=== PATIENT | female | born 1955 | race Hispanic/Latino ===

== ENCOUNTER 2018-11-14 13:37 | Outpatient (CLI) | payer OTHER | END 2018-11-14 13:38 | disposition home or self-care (01) | LOC: C.RADH 13:37 ==

== ENCOUNTER 2018-12-14 00:32 | Emergency (ER) | payer OTHER ==
[2018-12-14 00:33] VITALS: BMI 24.3
[2018-12-14] MEDS ORDERED: Apap-Butalbital-Caffeine 325-50-40mg Tab PO STA (01:56)
[2018-12-14] MEDS ORDERED: Apap-Butalbital-Caffeine 325-50-40mg Tab ONE (02:04)
[2018-12-14 02:26] LABS: BASO % 0.4 % (0.0-2.0); EOS # 0.1 K/uL (0.0-0.7); HEMOGLOBIN 14.1 g/dL (11.0-16.0); LYMPH # 1.9 K/uL (1.0-4.3); LYMPH % 25.2 % (20.0-40.0); MEAN CELL VOLUME 86.3 fL (81.0-99.0); MEAN CORPUSCULAR HEMOGLOBIN 28.3 pg (27.0-31.0); MEAN CORPUSCULAR HGB CONC 32.8 g/dL (33.0-37.0); MEAN PLATELET VOLUME 9.5 fL (7.2-11.7); MONO # 0.6 K/uL (0.0-0.8); MONO % 7.7 % (0.0-10.0); NEUT % 65.7 % (50.0-75.0); RBC 4.99 Mil/uL (3.80-5.20); RED CELL DISTRIBUTION WIDTH 13.5 % (11.5-14.5); WHITE BLOOD COUNT 7.6 K/uL (4.8-10.8)
[2018-12-14 02:32] LABS: ALB/GLOB RATIO 1.4 (1.0-2.1); ALBUMIN 4.2 g/dL (3.5-5.0); ALT/SGPT 16 U/L (9-52); AST/SGOT 17 U/L (14-36); BLOOD UREA NITROGEN 15 mg/dL (7-17); CALCIUM 8.9 mg/dl (8.6-10.4); GFR NON-AFRICAN AMERICAN > 60
[2018-12-14] MEDS ORDERED: Sodium Chloride 0.9% 500 ML IV ONE (03:05)
--- NOTE | 2018-12-14 03:41 | C.PDOC ---
History Of Present Illness 63 year old female is brought to the ED by EMS for evaluation of moderate frontal headache associated with nausea dizziness. Patient describes her dizziness as sensation of room spinning, patient reports while ambulance was in motion patient started vomiting. Patient denies injury, fall, trauma, weakness, numbness, visual changes, thunderclap description, CP, SOB, palpitations. Time Seen by Provider: 12/14/18 01:28 Chief Complaint (Nursing): Headache History Per: Patient, EMS History/Exam Limitations: no limitations Onset/Duration Of Symptoms: Hrs Current Symptoms Are (Timing): Still Present Severity: Moderate Quality: "Pain" Associated Symptoms: Nausea Recent travel outside of the [place]: No Additional History Per: Patient Past Medical History Reviewed: Historical Data, Nursing Documentation, Vital Signs Vital Signs: Last Vital Signs Temp 97.8 F 12/14/18 01:00 Pulse 57 L 12/14/18 02:45 Resp 14 12/14/18 02:45 BP 138/76 12/14/18 02:45 Pulse Ox 99 12/14/18 02:45 - Medical History PMH: Anxiety, Asthma, Cardia Arrhythmia, Gastrointestinal Ulcer, HTN, Hypercholesterolemia, Hypothyroidism Denies: Chronic Kidney Disease Surgical History: No Surg Hx Family History: States: Unknown Family Hx - Social History Hx Tobacco Use: No Hx Alcohol Use: No Hx Substance Use: No - Immunization History Hx Tetanus Toxoid Vaccination: No Hx Influenza Vaccination: No Hx Pneumococcal Vaccination: No Review Of Systems Constitutional: Negative for: Fever, Chills Eyes: Negative for: Vision Change Cardiovascular: Negative for: Chest Pain Respiratory: Negative for: Cough, Shortness of Breath Gastrointestinal: Positive for: Nausea. Negative for: Vomiting, Abdominal Pain Musculoskeletal: Negative for: Neck Pain Skin: Negative for: Rash Neurological: Positive for: Headache, Dizziness. Negative for: Weakness, Numbness Physical Exam - Physical Exam Appears: Non-toxic, No Acute Distress Skin: Normal Color, Warm, Dry Head: Atraumatic, Normacephalic Eye(s): bilateral: Normal Inspection, PERRL, EOMI Oral Mucosa: Moist Neck: Normal ROM, No Midline Cervical Tenderness, Supple, Other (no meningeal signs) Chest: Symmetrical Cardiovascular: Rhythm Regular Respiratory: Normal Breath Sounds, No Rales, No Rhonchi, No Wheezing Gastrointestinal/Abdominal: Soft, No Tenderness, No Guarding, No Rebound Back: No Vertebral Tenderness Extremity: Normal ROM, No Tenderness, No Swelling Neurological/Psych: Oriented x3, Normal Speech, Normal Cognition, Normal Motor, Normal Sensation Gait: Steady ED Course And Treatment - Laboratory Results Result Diagrams: 12/14/18 02:18 12/14/18 02:18 Lab Results: Total Bilirubin 0.3 mg/dL (0.2-1.3) 12/14/18 02:18 AST 17 U/L (14-36) 12/14/18 02:18 ALT 16 U/L (9-52) 12/14/18 02:18 Alkaline Phosphatase 145 U/L (38-126) H 12/14/18 02:18 Total Protein 7.1 g/dL (6.3-8.3) 12/14/18 02:18 Albumin 4.2 g/dL (3.5-5.0) 12/14/18 02:18 Globulin 2.9 gm/dL (2.2-3.9) 12/14/18 02:18 Albumin/Globulin Ratio 1.4 (1.0-2.1) 12/14/18 02:18 O2 Sat by Pulse Oximetry: 99 (ON RA) Pulse Ox Interpretation: Normal - CT Scan/US CT head Other Rad Studies (CT/US): Read By Radiologist, Radiology Report Reviewed CT/US Interpretation: CT scan of the head. CLINICAL HISTORY: Headache. TECHNIQUE: Multiple axial CT images were obtained through the brain without IV contrast material. COMMENTS: There is normal configuration of sella turcica. There are no intra or extra-axial collections. There is no mass effect or midline shift. There is no evidence of hematoma formation. No hydrocephalus is present. The ventricles are symmetrical. No abnormal calcifications are present. There is diffuse age-appropriate cerebellar and cerebral atrophy with proportionally dilated ventricles and cortical sulci. There are bilateral periventricular and subcortical white matter hypolucencies compatible with mild chronic microvascular disease. Otherwise, no significant focal abnormalities are seen either in the posterior fossa or supratentorial compartment. Moderate chronic mucosal inflammatory changes of the right maxillary sinus and left ethmoid air cells. IMPRESSION: 1. Age-appropriate cerebellar and cerebral atrophy. 2. Mild chronic microvascular disease. 3. No evidence of acute intracranial pathology. 4. Chronic sinusitis. Thank you for your kind referral of this patient. . Electronically signed on Dec 14, 2018 3:34:53 AM EST by: Diane Bhatt M.D., Certified by [facility]BR, MSK, Neuroradiology. Progress Note: Plan: - CT head. - Labs. - Fioricet 1 tab PO. - Reglan 10 mg PO. - IV fluids. Patient remains stable , afebrile with no neuro deficits. Pt reports improvement after medications were given. Patient was advised to follow up with PMD/ Neurlogist for further evaluation. Reevaluation Time: 05:09 Reassessment Condition: Improved Disposition Counseled Patient/Family Regarding: Diagnosis, Need For Followup, Rx Given - Disposition Referrals: Giselle Sotomayor MD [Staff Provider] - Disposition: HOME/ ROUTINE Disposition Time: 05:10 Condition: STABLE Additional Instructions: increase flluids Take medicatons as directed Return to ER if worse Prescriptions: Acetaminophen/Butalbital/Caf [Fioricet] 1 tab PO TID PRN #20 tab PRN Reason: Headache Meclizine [Meclizine*] 25 mg PO Q6 #10 tab Forms: [employer] (Chilean) - Clinical Impression Clinical Impression: Headache, Vertigo - PA / TRAFFIC ASSISTANT / Resident Statement MD/DO has reviewed & agrees with the documentation as recorded. - Scribe Statement The provider has reviewed the documentation as recorded by the Scribe Joshua Dowell All medical record entries made by the Scribe were at my direction and personally dictated by me. I have reviewed the chart and agree that the record accurately reflects my personal performance of the history, physical exam, medical decision making, and the department course for this patient. I have also personally directed, reviewed, and agree with the discharge instructions and disposition.
[2018-12-14 05:46] VITALS: BP 121/75; PULSE 58; RESP 16; TEMP 98.1; O2SAT 98
--- NOTE | 2018-12-14 07:14 | CT ---
Date of service: 12/14/2018 PROCEDURE: CT HEAD WITHOUT CONTRAST. HISTORY: Headache COMPARISON: Comparison is made to the previous study dated 03/22/2016 TECHNIQUE: Axial computed tomography images were obtained through the head/brain without intravenous contrast. Radiation dose: Total exam DLP = 1001.61 mGy-cm. This CT exam was performed using one or more of the following dose reduction techniques: Automated exposure control, adjustment of the mA and/or kV according to patient size, and/or use of iterative reconstruction technique. FINDINGS: HEMORRHAGE: No intracranial hemorrhage. BRAIN: No mass effect or edema. Mild atrophy and mild chronic microvascular white matter ischemic disease are again noted. VENTRICLES: Unremarkable. No hydrocephalus. CALVARIUM: Unremarkable. PARANASAL SINUSES: Mild mucosal thickening noted in the paranasal sinuses. There is mucosal retention cyst versus polyp at the right maxillary sinus. MASTOID AIR CELLS: Unremarkable as visualized. No inflammatory changes. OTHER FINDINGS: None. IMPRESSION: No evidence of acute intracranial hemorrhage intracranial collection mass effect or midline shift. Mild volume loss and mild chronic microvascular ischemic disease are again noted. Mild mucosal thickening in the paranasal sinuses. Preliminary report contains concordant findings was submitted by [facility] Radiology.
== END 2018-12-14 06:31 | disposition home or self-care (01) ==
LOC: C.ER 00:32
DX: R51 Headache (principal); R42 Dizziness and giddiness; I10 Essential (primary) hypertension; E78.00 Pure hypercholesterolemia, unspecified
CPT/HCPCS: 70450; 80053; 85025; 96374; 99285; J2765; J7040